=== PATIENT | male | born 1955 | race Caucasian/White ===

== ENCOUNTER 2017-09-26 09:27 | Day surgery (SDC) | payer BC ==
[2017-09-24 17:27] VITALS: BMI 23.6
[~2017-09-26 09:27] MED LIST: HEPARIN SODIUM,PORCINE 5,000 UNIT/ML 1 ML VIAL SQ ONE; ceFAZolin IN SWFI 2 GM/20 ML SYRINGE IVP ONE
[2017-09-26] MEDS ORDERED: ROCURONIUM BROMIDE 10 MG/ML 10 ML VIAL IV ONE (10:27)
[2017-09-26] MEDS ORDERED: PROPOFOL 10 MG/ML 20 ML VIAL IV ONE (10:27)
[2017-09-26] MEDS ORDERED: LIDOCAINE 1% INJ 10MG/ML (20 ML MDV) ONE (10:27)
[2017-09-26] MEDS ORDERED: GLYCOPYRROLATE 0.2 MG/ML 2 ML VIAL ONE (10:27)
[2017-09-26] MEDS ORDERED: MIDAZOLAM 2 MG/2 ML VIAL ONE (10:27)
[2017-09-26] MEDS ORDERED: NEOSTIGMINE 1 MG/ML 10 ML VIAL ONE (10:27)
[2017-09-26] MEDS ORDERED: DEXAMETHASONE SOD PHOS (MDV) 100 MG/10 ML VIAL ONE (10:27)
[2017-09-26] MEDS ORDERED: SUCCINYLCHOLINE CHLORIDE 100 MG/5 ML SYR IV ONE (10:27)
[2017-09-26] MEDS ORDERED: LACTATED RINGERS 1,000 ML IV ONE ×2 (10:27)
[2017-09-26] MEDS ORDERED: fentaNYL (PF) 50 MCG/ML 2 ML AMP ONE (10:27)
[2017-09-26] MEDS ORDERED: ONDANSETRON 4 MG/2 ML VIAL ONE (10:27)
[2017-09-26] MEDS ORDERED: HEPARIN SODIUM,PORCINE 5,000 UNIT/ML 1 ML VIAL ONE (10:27)
[2017-09-26] MEDS ORDERED: BUPIVACAINE-EPI 0.5%-1:200,000 10 ML VIAL SQ ONE (10:56)
--- NOTE | 2017-09-26 11:24 | P.GSHP ---
History of Present Illness H&P Date: 09/26/17 Chief Complaint: Right inguinal hernia This is a 62-year-old male referred from Dr. Ashwin Hairston. Patient is today for laparoscopic robotic-assisted repair of right inguinal hernia. Patient developed a mass in his right groin. Past Medical History Past Medical History: Chest Pain / Angina, Hyperlipidemia, Hypertension, Prostate Disorder Additional Past Medical History / Comment(s): LBBB. SHORTNESS OF BREATH W/ BRISK ACTIVITY, STAIRS. BPH. History of Any Multi-Drug Resistant Organisms: None Reported Past Surgical History: Back Surgery, Heart Catheterization Additional Past Surgical History / Comment(s): EYE SX CHILD. COLONOSCOPY. Past Anesthesia/Blood Transfusion Reactions: No Reported Reaction Smoking Status: Former smoker - Past Family History Mother Family Medical History: Cancer Father Family Medical History: Cancer Medications and Allergies Home Medications Medication Instructions Recorded Confirmed Type Aspirin [Adult Low Dose Aspirin EC] 81 mg PO DAILY 03/12/17 09/24/17 History Atorvastatin [Lipitor] 10 mg PO DAILY 03/12/17 09/24/17 History Doxazosin [Cardura] 4 mg PO DAILY 03/12/17 09/24/17 History Finasteride [Proscar] 5 mg PO DAILY 03/12/17 09/24/17 History amLODIPine [Norvasc] 5 mg PO DAILY 03/12/17 09/24/17 History Allergies Allergy/AdvReac Type Severity Reaction Status Date / Time No Known Allergies Allergy Verified 09/24/17 16:58 Surgical - Exam - General well developed, no distress - Eyes PERRL - ENT normal pinna - Neck no masses - Respiratory normal expansion - Cardiovascular Rhythm: regular - Abdomen Abdomen: soft, non tender Hernia: inguinal (Reducible right inguinal hernia) Assessment and Plan Assessment: Right inguinal hernia. We'll perform laparoscopic robotic-assisted repair.
--- NOTE | 2017-09-26 11:26 | P.OP ---
Date of Procedure: 09/26/17 Preoperative Diagnosis: Right inguinal hernia Postoperative Diagnosis: Right inguinal hernia Right cord lipoma Procedure(s) Performed: Laparoscopic robotic-assisted repair of right hernia. Excision of right cord lipoma Anesthesia: REUBEN Surgeon: Shahid Berry Estimated Blood Loss (ml): 5 Pathology: other (Right cord lipoma) Condition: stable Disposition: PACU Description of Procedure: The patient's placed on the operating table in the supine position. The patient received general anesthesia. The patient's abdomen was prepped and draped in usual sterile fashion. The skin was anesthetized 1% local Xylocaine at the incision sites. Using an 11 blade a skin incision was made at the umbilicus. The fascia was grasped with a Purdon and then the peritoneal cavity was entered with the Veress needle. Position of the Veress needle was confirmed with a positive drop test. After adequate insufflation a 5 mm trocar was placed into the peritoneal cavity. The Laparoscope was placed the peritoneal cavity. And a robotic 8 mm trocar was placed in the right lateral position and then another 8 mm robotic trochars placed in the left lateral position. The original 5 mm trocar was exchanged for a 12 mm trocar. The patient was placed in reverse Trendelenburg and then the patient was docked to the robot. Next the peritoneum over top of the hernia was incised and then using blunt and sharp dissection and electrocautery the hernia sac was dissected free from the floor of the inguinal canal. The hernia sac was completely reduced into the peritoneal cavity. There was a cord lipoma dissected from the cord. And then using the Pro spray stainer mesh the hernia was repaired. The peritoneum was then sutured with 20V lock suture. The patient was then undocked the robot. The needle was withdrawn from the peritoneal cavity. The cord lipoma was withdrawn. The umbilical trocar site was closed with 0 Ethibond suture. The skin was closed interrupted 3-0 Monocryl suture. Dermabond dressing was applied. Patient was sent to recovery in stable condition.
[2017-09-26 12:00] VITALS: TEMP 97.1
[2017-09-26] MEDS ORDERED: ONDANSETRON 4 MG/2 ML VIAL IVP ONE ×2 (12:19→13:30)
[2017-09-26] MEDS ORDERED: HYDROmorphone 1 MG/ML 1 ML SYRINGE IVP ONE ×2 (12:19→12:24)
[2017-09-26 13:18] VITALS: RESP 18
[2017-09-26] MEDS ORDERED: HYDROmorphone 0.5 MG/0.5 ML SYRINGE IVP PRN (13:30)
[2017-09-26] MEDS ORDERED: DEXAMETHASONE SOD PHOSPHATE 10 MG/ML 1 ML VIAL IV ONE (13:30)
[2017-09-26] MEDS ORDERED: LACTATED RINGERS 1,000 ML IV SCH (13:30)
[2017-09-26] MEDS ORDERED: HYDROcodone/APAP 7.5-325MG 1 EACH TAB PO ONE (14:37)
[2017-09-26 15:18] VITALS: BP 119/66; PULSE 70
== END 2017-09-26 15:46 | disposition home or self-care (01) ==
LOC: OR 09:27
PROVIDERS: ATTEND Surgery
DX: K40.90 Unilateral inguinal hernia, without obstruction or gangrene, not specified as recurrent (principal); D17.6 Benign lipomatous neoplasm of spermatic cord; E78.5 Hyperlipidemia, unspecified; I10 Essential (primary) hypertension; N40.0 Benign prostatic hyperplasia without lower urinary tract symptoms; I44.7 Left bundle-branch block, unspecified; Z87.891 Personal history of nicotine dependence; Z79.82 Long term (current) use of aspirin; Z79.899 Other long term (current) drug therapy
CPT/HCPCS: 88304; 49650; C1781; J2405; J1170; J0690

== ENCOUNTER 2023-07-10 05:54 | Day surgery (SDC) | payer MEDICARE ==
[2023-07-05 12:21] VITALS: BMI 25.4
[~2023-07-10 05:54] MED LIST changes: +ALPRAZolam 0.25 MG TAB PO PRN; +HEPARIN SODIUM,PORCINE (1 ML) 2,500 UNIT in SODIUM CHLORIDE 0.9% 250 ML IRRIGATION PRN; +HEPARIN SODIUM,PORCINE 10,000 UNIT in SODIUM CHLORIDE 0.9% 1,000 ML IRRIGATION PRN; -HEPARIN SODIUM,PORCINE 5,000 UNIT/ML 1 ML VIAL SQ ONE; -ceFAZolin IN SWFI 2 GM/20 ML SYRINGE IVP ONE
[2023-07-10] MEDS: SODIUM CHLORIDE 0.9% 1,000 ML in EMPTY BAG 1 BAG IV SCH (06:00)
[2023-07-10] MEDS: SODIUM CHLORIDE 0.9% 1,000 ML IV ONE (06:01)
[2023-07-10] MEDS: ASPIRIN 325 MG TAB PO ONE (06:17)
[2023-07-10] MEDS: ALPRAZolam 0.5 MG TAB PO PRN (06:18)
[2023-07-10 06:22] VITALS: RESP 16; TEMP 97.2
[2023-07-10 06:36] LABS: Basophils % (A) 1 %; Eosinophils # (A) 0.4 k/uL (0-0.7); Eosinophils % (A) 5 %; HCT 40.6 % (39.0-53.0); HGB 13.5 gm/dL (13.0-17.5); Lymphocytes # (A) 2.1 k/uL (1.0-4.8); Lymphocytes % (A) 30 %; MCH 30.1 pg (25.0-35.0); MCHC 33.2 g/dL (31.0-37.0); MCV 90.8 fL (80.0-100.0); Mean Platelet Volume 8.1; Monocytes # (A) 0.6 k/uL (0-1.0); Monocytes % (A) 8 %; Neutrophils # (A) 3.8 k/uL (1.3-7.7); Neutrophils % (A) 54 %; Platelet Count 268 k/uL (150-450); RBC 4.47 m/uL (4.30-5.90)
[2023-07-10 06:47] LABS: African American GFR (CKD) >90 (>60 ml/min/1.73 sqM); Anion Gap 8 mmol/L; Blood Urea Nitrogen 25 mg/dL (9-20); Calcium 9.4 mg/dL (8.4-10.2); Carbon Dioxide 25 mmol/L (22-30); Chloride 107 mmol/L (98-107); Glucose 106 mg/dL (74-99); Non-African American GFR(CKD) 80 (>60 ml/min/1.73 sqM); Potassium 3.8 mmol/L (3.5-5.1); Sodium 140 mmol/L (137-145)
[2023-07-10] MEDS ORDERED: ATORVASTATIN 80 MG TAB PO ONE (07:00)
[2023-07-10] MEDS ORDERED: HEPARIN SODIUM 1,000 UN/ML (10ML VL) ONE (07:29)
[2023-07-10] MEDS ORDERED: fentaNYL (PF) 50 MCG/ML 2 ML AMP ONE (07:40)
[2023-07-10] MEDS: LIDOCAINE 1% INJ 10MG/ML (20 ML MDV) SQ ONE (07:41)
[2023-07-10] MEDS: VERAPAMIL SYRINGE (5 MG/10 ML) INTRAARTER ONE (07:43)
[2023-07-10] MEDS: fentaNYL (PF) 50 MCG/ML 2 ML AMP IVP ONE (07:44)
[2023-07-10] MEDS: MIDAZOLAM 2 MG/2 ML VIAL IVP ONE (07:44)
[2023-07-10] MEDS: HEPARIN SODIUM 1,000 UN/ML (10ML VL) IVP ONE (07:47)
[2023-07-10] MEDS: IOPAMIDOL-370 100ML BTL INJ ONE (08:06)
[2023-07-10] MEDS ORDERED: RX INFO: IV CONTRAST WAS GIVEN 1 EACH MISC MISCELLANE PRN (08:08)
--- NOTE | 2023-07-10 08:13 | P.PCN ---
Date of Procedure: 07/10/23 Operative Findings: CARDIAC CATHETERIZATION PERFORMING PHYSICIAN: Percy Freedman MD, RPVI PROCEDURE PERFORMED: 1. Selective right and left coronary angiogram 2. Left heart catheterization 3. FFR of the LAD 4. Ultrasound-guided access of the right radial artery INDICATION: Chest discomfort concerning for angina in this 68-year-old gentleman who underwent coronary CTA and that showed intermediate disease involving the LAD COMPLICATION: None APPROACH: Right radial artery LEVEL OF SEDATION: Moderate with a sedation length of 24 minutes PROCEDURE DESCRIPTION: After obtaining an informed consent, the patient was brought to cardiac irrigation laborer. Local anesthesia was performed using lidocaine subcutaneously. The right radial artery was cannulated using Seldinger technique, the guidewire passed easily, following that we advanced a 5-Namibian sheath dilator assembly, the wire and dilator were removed and sheath was flushed. Following that, 2 mg of verapamil along with 5000 unit heparin were given. Selective right and left coronary angiogram using a 6-Namibian JR4 and JL 3.5 catheters. Following that we did left heart catheterization using 6-Namibian pigtail catheter. After that we decided to do an IFR of the LAD with after zeroing the Doppler wire and equalizing between the Doppler wire and guiding catheter which was JL 3.5 guiding catheter the left main was engaged and the LAD was wired. Subsequently we did initially an IFR and that came in to be at 0.85. We decided to repeat that. We did again equalized between the Doppler wire and guiding catheter then the left main was engaged again and wired again and repeated IFR came to be at 0.95. The procedure was completed there was no complication. SELECTIVE CORONARY ANGIOGRAM: The right coronary artery: Large-caliber vessel and a dominant vessel and appears to be angiographically normal Left main: Is angiographically normal. Bifurcates into an LCx and LAD The left circumflex: Large-caliber vessel nondominant vessel appears to be angiographically normal as well gives rise into a large OM branch which appears to be normal The left anterior descending artery: The proximal LAD appears to be angiographically normal with the mid LAD has a tubular lesion appears to be in the range of 50% and seen on the ESTEVEZ caudal and TAJIK caudal the most. The lesion is intermediate. We did an IFR and that came in to be nonischemic at 0.95. The LAD distally appears to be normal HEMODYNAMICS: The LVEDP was 20 mmHg with no significant gradient across aortic valve CONCLUSION: 1. Intermediate disease involving the mid LAD documented to be nonflow limiting by Doppler wire with IFR of 0.95 2. Elevated left-sided filling pressure POSTPROCEDURE MANAGEMENT: Medical treatment
[2023-07-10] MEDS: NITROGLYCERIN SL TABS 0.4 MG TAB SUBLINGUAL PRN (08:47)
[2023-07-10] MEDS: SODIUM CHLORIDE 0.9% 1,000 ML IV SCH (08:47)
[2023-07-10] MEDS: ACETAMINOPHEN TAB 500 MG TAB PO ONE (11:55)
[2023-07-10 13:09] VITALS: BP 122/62; PULSE 56
== END 2023-07-10 12:20 | disposition home or self-care (01) ==
LOC: CATHCVL 05:54
PROVIDERS: ATTEND Internal Medicine Interventional Cardiology
DX: I25.10 Atherosclerotic heart disease of native coronary artery without angina pectoris (principal); I10 Essential (primary) hypertension; E78.5 Hyperlipidemia, unspecified; I38 Endocarditis, valve unspecified; Z86.74 Personal history of sudden cardiac arrest; Z79.899 Other long term (current) drug therapy; Z98.890 Other specified postprocedural states
CPT/HCPCS: 93458; 93799; 80048; 85025; C1887; C1769 ×2; C1894; J2250; J2001; J3010; J1644; Q9967

== ENCOUNTER → 2023-12-19 | Outpatient (CLI) | payer MEDICARE ==
--- NOTE | 2023-12-20 16:07 | P.PCN ---
Date of Procedure: 12/20/23 Operative Findings: Home sleep study testing Date of service is 12/20/2023 History This is a 68-year-old male patient with history of chronic loud snoring, witnessed apneas by the and reported waking up tired and fatigued during the day. No naps. Still working. No history of any motor vehicle accidents because of feeling drowsy or sleepy. He is known to have hypertension, hyperlipidemia and BPH. Pertinent physical findings The patient's weight is 171 pounds and has a body mass index of 24.5 Technical description The [email or web address] system was used to complete his home sleep study. This is a type III home sleep study evaluation. The total recording duration was 7 hours and 53 minutes. The study started at 12:08 AM and ended at 8:02 AM. There was a total of 7 hours and 42 minutes of flow monitoring and 7 hours and 43 minutes of oxygen saturation monitoring Results The respiratory analysis showed a total of 68 obstructive apneas and 10 obstructive hypopneas. The overall apnea-hypopnea index was 10.1. This disease was worsened in supine body position with an AHI of 60.5 while being supine. Oxygenation analysis The patient's baseline pulse ox was 94% room air oxygen. Average pulse ox during sleep was 92%. Minimum pulse ox was 83% and the patient spent approximately 9 minutes of the sleep time and a pulse ox of below 89% Cardiac summary Average heart rate was 50 with a minimum heart rate of 40 and a maximum heart rate of 80 Assessment Mild obstructive sleep apnea with an AHI of 10, REM specific with an AHI of 60 while being in rem sleep. Daytime fatigue/sleepiness Hypertension Hyperlipidemia BPH Plan This is a case of mild obstructive sleep apnea. The results will be discussed with the patient during his upcoming office visit. Obviously, the patient may consider treatment as long as he is having excessive fatigue and sleepiness during the day. His current [place] score is at 8. I am going to offer him various treatment options including oral appliance and CPAP therapy and will make a final decision following those discussions. Maintain current body weight. His current body mass index is 24.5. Optimize sleep hygiene measures. Maintain regular sleep schedule. Will continue to follow.
== END ==
LOC: 3 N SLEEP 16:59
PROVIDERS: ATTEND Internal Medicine Critical Care Medicine

== ENCOUNTER → 2024-09-15 | Outpatient (CLI) | payer MEDICARE | END | disposition home or self-care (01) | LOC: LABT 13:19 | PROVIDERS: ATTEND Urology | DX: R97.20 Elevated prostate specific antigen [PSA] (principal) | CPT/HCPCS: 84153 ==